=== PATIENT | female | born 2000 | race African-American/Black ===

== ENCOUNTER 2021-08-30 10:23 | Emergency (ER) | payer OTHER ==
[2021-08-30 10:33] VITALS: BP 112/64; PULSE 71; TEMP 98.2; BMI 50.3
== END 2021-08-30 11:56 | disposition home or self-care (01) ==
LOC: JERFT 10:23
DX: M54.6 Pain in thoracic spine (principal); S46.012A Strain of muscle(s) and tendon(s) of the rotator cuff of left shoulder, initial encounter; V49.50XA Passenger injured in collision with unspecified motor vehicles in traffic accident, initial encounter
CPT/HCPCS: 72070-TC-FY; 99283-25

== ENCOUNTER 2022-06-01 16:17 | Emergency (ER) | payer OTHER ==
[2022-06-01 16:45] VITALS: RESP 18; BMI 51.7
[2022-06-01] MEDS ORDERED: AZITHROMYCIN 500 MG TABLET PO ONE (18:09)
[2022-06-01] MEDS ORDERED: AZITHROMYCIN 250 MG TABLET ONE (18:29)
[2022-06-01 19:39] LABS: HCG,QUALITATIVE URINE Positive; PH,URINE 6.5 (5.0-8.0); URINE APPEARANCE CLEAR; URINE BILIRUBIN NEGATIVE (NEGATIVE); URINE COLOR YELLOW; URINE GLUCOSE (UA) NEGATIVE (NEGATIVE); URINE KETONE TRACE (NEGATIVE); URINE LEUK ESTERASE NEGATIVE (NEGATIVE); URINE NITRITE NEGATIVE (NEGATIVE); URINE PROTEIN NEGATIVE (NEGATIVE)
[2022-06-01 19:57] LABS: CALCIUM 8.9 mg/dL (8.5-10.1)
[2022-06-01 19:58] LABS: BLOOD UREA NITROGEN 15.3 mg/dL (7-18)
[2022-06-01 20:12] LABS: CREATININE 0.7 mg/dL (0.55-1.3)
[2022-06-01 20:55] LABS: BASO % 0.4 % (0-2.0); EOS % 0.7 % (0-4.5); HEMATOCRIT 32.1 % (32.4-45.2); HEMOGLOBIN 10.4 GM/dL (10.7-15.3); LYMPH % 31.2 % (8-40); MCH 27.6 pg (25.7-33.7); MCHC 32.5 g/dl (32.0-36.0); MEAN PLT VOLUME 6.9 fl (7.5-11.1); MONO % 10.4 % (3.8-10.2); NEUT % 57.3 % (42.8-82.8); PLATELET COUNT 265 10^3/uL (134-434); RBC 3.78 M/mm3 (3.60-5.2); RDW 14.2 % (11.6-15.6); WHITE BLOOD COUNT 6.6 K/mm3 (4.0-10.0)
[2022-06-01 21:28] VITALS: BP 126/61; PULSE 78; TEMP 97.9
[2022-06-01] MEDS ORDERED: ACETAMINOPHEN 500 MG TABLET (FP) PO ONE (22:12)
[2022-06-01] MEDS ORDERED: ACETAMINOPHEN 325 MG TABLET (FP) ONE (22:15)
== END 2022-06-01 22:51 | disposition home or self-care (01) ==
LOC: JER 16:17
DX: O41.8X10 Other specified disorders of amniotic fluid and membranes, first trimester, not applicable or unspecified (principal); O20.9 Hemorrhage in early pregnancy, unspecified; O98.311 Other infections with a predominantly sexual mode of transmission complicating pregnancy, first trimester; Z3A.01 Less than 8 weeks gestation of pregnancy
CPT/HCPCS: 36415; 76817-TC; 80048; 81003; 84702; 84703; 85025; 86850; 86900; 86901; 87086; 87491; 87591; 99284-25